=== PATIENT | male | born 1985 | race Caucasian/White ===

== ENCOUNTER 2017-02-16 09:41 | Emergency (ER) | payer BC ==
[~2017-02-16 09:41] MED LIST: ALBUTEROL17 GM INH; AMOXICILLIN500 M1 PO; IBUPROFEN PO; LORTAB 7.5-5001 TAB PO; METHADONE PO; NO MEDICATIONS; PEN-VEE K PO; PERCOCET5/325 PO; PERIDEX480 ML PO; VOLTAREN75 MG PO; ZITHROMAX PO
[2017-02-16] MEDS ORDERED: METHADONE (09:50)
== END 2017-02-16 10:22 | disposition home or self-care (01) ==
LOC: SED 09:41
DX: L02.811 Cutaneous abscess of head [any part, except face] (principal); I88.9 Nonspecific lymphadenitis, unspecified; F17.210 Nicotine dependence, cigarettes, uncomplicated
CPT/HCPCS: 99283